=== PATIENT | male | born 1930 | race Caucasian/White ===

== ENCOUNTER 2017-08-16 22:32 | Emergency (ER) | payer MEDICARE ==
[~2017-08-16] VITALS: Ht 175.3 cm; Wt 95.3 kg
[~2017-08-16 22:32] MED LIST: AMLO10TA82 PO; ASP81TEC PO; CHOL200035 PO; CLPD75T PO; FURO20TA4 PO; HCT25T PO; HUM100VI15 SQ; HUM100VI4 SQ; IBUP200T48 PO; ISOS30TA3 PO; METO25TA PO; METO25TA2 PO; MTF500T PO; OMEG-11 PO; PED1TAB. PO; PIOG30TA27 PO; POTA10CA43 PO; PRAM0.5T9 PO; ROSU10TA12 PO; ROSU5TAB PO; TRZS2T PO; VLS80C PO
--- OUTSIDE RECORDS SUMMARY | 2017-08-16 22:39 | XMS REPORT | Continuity of Care Document ---
Author Author [facility] Organization [facility] Address Unknown Phone Unavailable Allergies Active Description Code Type Severity Reaction Onset Reported/Identified Relationship to Patient Clinical Status Yes No Known Drug Allergies [id number] Drug Allergy Unknown N/A 11/25/2011 Medications There is no data. Problems Date Dx Coded Attending Type Code Diagnosis Diagnosed By 11/27/2011 Ot 250.00 11/27/2011 Ot 327.23 11/27/2011 Ot 401.9 11/27/2011 Ot 411.1 11/27/2011 Ot 414.01 12/30/2014 KEN LANGFORD FACC, ALI FACP CCDS Ot 443.9 02/22/2015 KEN LANGFORD FACC, ALI FACP CCDS Ot 250.00 02/22/2015 KEN LANGFORD FACNoemy, ALI FACP CCDS Ot 272.4 02/22/2015 KEN LANGFORD FACNoemy, ALI FACP CCDS Ot 278.00 02/22/2015 KEN LANGFORD FACC, ALI FACP CCDS Ot 403.90 02/22/2015 KEN LANGFORD FACC, ALI FACP CCDS Ot 414.01 02/22/2015 KEN LANGFORD FACNoemy, ALI FACP CCDS Ot 414.4 02/22/2015 EKN LANGFORD FACC, ALI FACP CCDS Ot 440.21 02/22/2015 KEN LANGFORD FACC, ALI FACP CCDS Ot 585.3 02/22/2015 KEN LANGFORD FACC, ALI FACP CCDS Ot 786.09 02/22/2015 KEN MILLERC, ALI FACP CCDS Ot 786.50 02/22/2015 KEN LANGFORD FACC, ALI FACP CCDS Ot V45.81 02/22/2015 KEN LANGFORD FACC, ALI FACP CCDS Ot V58.67 02/22/2015 KEN MILLERC, ALI FACP CCDS Ot V58.69 02/22/2015 KEN LANGFORD FACC, ALI FACP CCDS Ot V85.33 03/29/2015 KHADAR PAYTON MD Ot 250.00 DIAB CASSI WO COMPL, TYPE II OR UNSPEC TY 03/29/2015 KHADAR PAYTON MD Ot 272.4 HYPERLIPIDEMIA NEC/NOS 03/29/2015 KHADAR PAYTON MD Ot 327.23 OBSTRUCTIVE SLEEP APNEA (ADULT) (PEDIATR 03/29/2015 KHADAR PAYTON MD Ot 403.90 HYPTNSV CHR KID DIS, UNSPEC, W CHR KD ST 03/29/2015 KHADAR PAYTON MD Ot 414.01 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 03/29/2015 KHADAR PAYTON MD Ot 440.21 ATHEROSCL [place] ARTER EXTREM W INTERMIT 03/29/2015 KHADAR PAYTON MD Ot 440.4 CHRONIC TOTAL OCCLUSION OF ARTERY OF THE 03/29/2015 KHADAR PAYTON MD Ot 585.9 CHRONIC KIDNEY DISEASE, UNSPECIFIED 03/29/2015 KHADAR PAYTON MD Ot 786.09 RESPIRATORY ABNORM NEC 03/29/2015 KHADAR PAYTON MD Ot 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 03/29/2015 KHADAR PAYTON MD Ot V58.67 LONG-TERM (CURRENT) USE OF INSULIN 03/29/2015 KHADAR PAYTON MD, Ot V58.69 OTH MED,LT,CURRENT USE 04/04/2015 Ot 250.00 04/04/2015 Ot 414.00 04/04/2015 Ot 250.00 04/04/2015 Ot 272.4 04/04/2015 Ot V45.81 04/04/2015 Ot 250.00 04/04/2015 Ot 272.4 04/04/2015 Ot 397.0 04/04/2015 Ot 416.8 04/04/2015 Ot 424.0 04/04/2015 Ot V45.81 04/04/2015 CELIA CASEY MD Ot 786.05 04/04/2015 KEN LANGFORD FACLOGAN Salguero FACP CCDS Ot 443.9 04/06/2015 KHADAR PAYTON MD Ot 250.00 04/06/2015 KHADAR PAYTON MD Ot 272.4 04/06/2015 KHADAR PAYTON MD Ot 389.9 04/06/2015 KHADAR PAYTON MD Ot 403.90 04/06/2015 KHADAR PAYTON MD Ot 414.00 04/06/2015 KHADAR PAYTON MD Ot 440.21 04/06/2015 KHADAR PAYTON MD Ot 585.3 04/06/2015 KHADAR PAYTON MD Ot V45.89 04/06/2015 KHADAR PAYTON MD Ot V58.69 Procedures There is no data. Results There is no data. Encounters ACCT No. Visit Date/Time Discharge Status Pt. Type Provider Facility Loc./Unit Complaint [id number] 04/05/2015 07:21:00 04/06/2015 12:50:00 DIS Outpatient KHADAR PAYTON MD [facility] [id number] 03/28/2015 06:54:00 03/29/2015 12:45:00 DIS Outpatient KHADAR PAYTNO MD [facility] CAD/PAD [id number] 02/22/2015 09:00:00 02/22/2015 20:25:00 DIS Outpatient KEN LANGFORD FACC, ALI FACP CCDS [facility] CATH [id number] 12/07/2014 08:15:00 12/07/2014 23:59:59 CLS Preadmit KEN LANGFORD FACC, ALI FACP CCDS [facility] CARD [id number] 12/02/2014 08:37:00 12/02/2014 23:59:59 CLS Outpatient KEN LANGFORD FACC, ALI FACP CCDS [facility] RAD [id number] 04/22/2013 12:27:00 04/22/2013 23:59:59 CLS Outpatient CELIA CASEY MD [facility] RT [id number] 08/16/2017 22:34:00 ACT Emergency YOLY DIAZ MD [facility] ER DIABETIC,BLEEDING UNDER CHIN/ CANT STOP THE BLEEDI [id number] 11/28/2012 08:15:00 Document Registration [id number] 11/24/2012 09:42:00 Document Registration [id number] 12/12/2011 10:00:00 Document Registration [id number] 11/25/2011 20:38:00 Document Registration
--- NOTE | 2017-08-16 22:57 | ED Integumentary General ---
General Chief Complaint: Skin/Wound Problems Stated Complaint: DIABETIC,BLEEDING UNDER CHIN/ CANT STOP THE BLEEDI Nursing Triage Note: PT STATES HE CUT HIMSELF ON THE CHIN WHILE SHAVING THIS AM AND IT HAS NOT STOPPED BLEEDING SINCE. Source: patient, spouse Exam Limitations: no limitations History of Present Illness Time seen by provider: 22:48 Initial Comments Patient presents to ER by a conveyance with a chief complaint that he takes his left neck while shaving with a safety razor this morning and his says he's been picking it ever since and it will not stop bleeding just a small ballotable of blood. He put a cotton ball and tape over it but he can't get it to stop bleeding. He is on Plavix and aspirin and is taking his medications. He also has a history of diabetes. He's had no chest pain, shortness of breath or weakness. No known history of anemia. Allergies and Home Medications Allergies Coded Allergies: No Known Drug Allergies (Unverified , 11/25/11) Home Medications Amlodipine Besylate 10 Mg Tablet, 10 MG PO DAILY, (Reported) Aspirin 81 Mg Tabec, 81 MG PO DAILY, (Reported) Cholecalciferol (Vitamin D3) 2,000 Unit Capsule, 2,000 UNIT PO 1200, (Reported) Clopidogrel Bisulfate 75 Mg Tab, 75 MG PO DAILY, (Reported) Furosemide 20 Mg Tablet, 20 MG PO DAILY, (Reported) Hum Insulin Nph/Reg Insulin Hm 10 Unit/0.1 Ml Soln, 40 UNIT SQ DAILY, (Reported) Ibuprofen 200 Mg Tablet, 200 MG PO Q6H PRN for PAIN, (Reported) Isosorbide Mononitrate 30 Mg Tab.sr.24h, 30 MG PO DAILY, (Reported) Metformin Hcl 500 Mg Tablet, 500 MG PO BID WITH MEALS, (Reported) Metoprolol Succinate 25 Mg Tab.sr.24h, 25 MG PO DAILY, (Reported) [place]-3S/Dha/Epa/Fish Oil 1 Each Capsule, 1,200 MG PO DAILY, (Reported) Ped Multivit #22/Vit D3/Vit K 1 Each Tab.chew, 1 TAB PO DAILY, (Reported) Pioglitazone Hcl 30 Mg Tablet, 30 MG PO DAILY, (Reported) Pramipexole Di-Hcl 0.5 Mg Tablet, 0.5 MG PO HS, (Reported) Rosuvastatin Calcium 10 Mg Tablet, 5 MG PO HS, (Reported) TAKES 1/2 (10MG) TABLET Terazosin Hcl 2 Mg Cap, 2 MG PO HS, (Reported) Constitutional: No chills, No fever, No malaise EENTM: see HPI, no symptoms reported Respiratory: No cough, No short of breath Cardiovascular: No chest pain, No syncope Gastrointestinal: No abdominal pain, No constipation, No diarrhea, No nausea Genitourinary: No discharge, No dysuria Skin: see HPI, other Past Opodhxl-Unshhv-Suvzsa Hx Patient Social History Alcohol Use: Denies Use Recreational Drug Use: No Smoking Status: Never a Smoker Recent Foreign Travel: No Contact w/Someone Who Travel: No Recent Infectious Disease Expo: No Recent Hopitalizations: Yes (SULEMA RUBIO) Physical Abuse: No Sexual Abuse: No Mistreated: No Fear: No Immunizations Up To Date Date of Pneumonia Vaccine: May 06, 2012 Date of Influenza Vaccine: Jun 08, 2011 Surgeries History of Surgeries: Yes (SHOULDER, CATARACTS, HEMORRIODS) Respiratory History of Respiratory Disorde: No Respiratory Disorders: Sleep Apnea Cardiovascular History of Cardiac Disorders: Yes Cardiac Disorders: Coronary Artery Disease, High Cholesterol, Hypertension Neurological History of Neurological Disord: No Reproductive System Hx Reproductive Disorders: No Gastrointestinal History of Gastrointestinal Di: No Musculoskeletal History of Musculoskeletal Dis: Yes Endocrine History of Endocrine Disorders: Yes Endocrine Disorders: Diabetes, Insulin dep Psychosocial History of Psychiatric Problem: No Suicide Risk Score: 0 Blood Transfusions History of Blood Disorders: No Physical Exam Vital Signs Vital Sign - Last 12Hours 08/16/17 22:41 Temp 97.7 Pulse 58 Resp 16 B/P (MAP) 175/100 (125) Capillary Refill : Less Than 3 Seconds General Appearance: WD/WN, no apparent distress HEENT: PERRL/EOMI, pharynx normal Neck: non-tender, full range of motion, supple, other (small 1-2 mm punctate abrasion consistent with a razor blade scrape on his left anterior neck that is producing a small amount of red blood.) Cardiovascular: normal peripheral pulses, regular rate, rhythm, no edema Respiratory: chest non-tender, lungs clear, no accessory muscle use Gastrointestinal: non tender, soft Neurologic/Psychiatric: alert, normal mood/affect, oriented x 3 Progress/Results/Core Measures Results/Orders Lab Results Laboratory Tests Test 08/16/17 22:40 Range/Units White Blood Count 7.7 4.3-11.0 10^3/uL Red Blood Count 3.68 L 4.35-5.85 10^6/uL Hemoglobin 11.4 L 13.3-17.7 G/DL Hematocrit 34 L 40-54 % Mean Corpuscular Volume 93 80-99 FL Mean Corpuscular Hemoglobin 31 25-34 PG Mean Corpuscular Hemoglobin Concent 33 32-36 G/DL Red Cell Distribution Width 13.5 10.0-14.5 % Platelet Count 190 130-400 10^3/uL Mean Platelet Volume 10.5 H 7.4-10.4 FL Neutrophils (%) (Auto) 53 42-75 % Lymphocytes (%) (Auto) 31 12-44 % Monocytes (%) (Auto) 12 0-12 % Eosinophils (%) (Auto) 4 0-10 % Basophils (%) (Auto) 0 0-10 % Neutrophils # (Auto) 4.1 1.8-7.8 X 10^3 Lymphocytes # (Auto) 2.4 1.0-4.0 X 10^3 Monocytes # (Auto) 0.9 0.0-1.0 X 10^3 Eosinophils # (Auto) 0.3 0.0-0.3 10^3/uL Basophils # (Auto) 0.0 0.0-0.1 10^3/uL Prothrombin Time 13.9 12.2-14.7 SEC INR Comment 1.1 0.8-1.4 My Orders Orders - EMILYYOLY Lali Cbc With Automated Diff (08/16/17 23:12) Protime With Inr (08/16/17 23:12) Saline Lock/Iv-Start (08/16/17 23:12) Vital Signs/I&O Vital Sign - Last 12Hours 08/16/17 22:41 Temp 97.7 Pulse 58 Resp 16 B/P (MAP) 175/100 (125) Blood Pressure Mean: 125 Progress Note #1: Time: 23:13 Progress Note Cautery by silver nitrate got the blood to stop flowing so we put a bandage back over and have him hold pressure on it while we are waiting for the blood work back. Progress Note #2: Time: 23:50 Progress Note Hemostasis is obtained. Blood is unremarkable from last lab draws. Departure Impression Impression: Primary Impression: Abrasion, neck w/o infection Disposition: 01 HOME, SELF-CARE Condition: Improved Departure-Patient Inst. Decision time for Depature: 23:50 Referrals: CELIA CASEY MD (PCP) Primary Care Physician Add. Discharge Instructions: If bleeding resumes but the dressing over the wound and applied direct pressure and stay in an upright seated position for 20 minutes without taking your finger off of the wound. If the wound begins to look infected should follow up with your primary care physician or return to the ER if he developed fevers, nausea or chest pain. All discharge instructions reviewed with patient and/or family. Voiced understanding. Copy Copies To 1: CELIA CASEY MD, TITUS J Aug 16, 2017 22:57
[2017-08-16 23:18] LABS: BASOPHILS % (AUTO) 0 % (0-10); EOSINOPHILS # (AUTO) 0.3 10^3/uL (0.0-0.3); EOSINOPHILS % (AUTO) 4 % (0-10); LYMPHOCYTES # (AUTO) 2.4 X 10^3 (1.0-4.0); LYMPHOCYTES % (AUTO) 31 % (12-44); MEAN CORPUSCULAR HEMOGLOBIN 31 PG (25-34); MEAN CORPUSCULAR HGB CONC 33 G/DL (32-36); MEAN CORPUSCULAR VOLUME 93 FL (80-99); MEAN PLATELET VOLUME 10.5 FL (7.4-10.4); MONOCYTES # (AUTO) 0.9 X 10^3 (0.0-1.0); MONOCYTES % (AUTO) 12 % (0-12); NEUTROPHILS # (AUTO) 4.1 X 10^3 (1.8-7.8); NEUTROPHILS % (AUTO) 53 % (42-75); PLATELET COUNT 190 10^3/uL (130-400); RED BLOOD COUNT 3.68 10^6/uL (4.35-5.85); RED CELL DISTRIBUTION WIDTH 13.5 % (10.0-14.5); WHITE BLOOD COUNT 7.7 10^3/uL (4.3-11.0)
[2017-08-16 23:33] LABS: INR 1.1 (0.8-1.4); PROTHROMBIN TIME PATIENT 13.9 SEC (12.2-14.7)
[2017-08-17 00:05] VITALS: BP 175/100
== END 2017-08-17 00:07 | disposition home or self-care (01) ==
LOC: EDUNIT# 22:32 → ER 22:34
DX: S10.91XA Abrasion of unspecified part of neck, initial encounter (principal); E11.9 Type 2 diabetes mellitus without complications; G47.30 Sleep apnea, unspecified; I25.10 Atherosclerotic heart disease of native coronary artery without angina pectoris; E78.00 Pure hypercholesterolemia, unspecified; I10 Essential (primary) hypertension; W26.8XXA Contact with other sharp object(s), not elsewhere classified, initial encounter; Z79.82 Long term (current) use of aspirin; Z79.4 Long term (current) use of insulin; Z79.02 Long term (current) use of antithrombotics/antiplatelets
CPT/HCPCS: 36415; 85025; 85610

== ENCOUNTER → 2018-03-04 | Outpatient (CLI) | payer MEDICARE, OTHER ==
[~2018-03-04] VITALS: Ht 175.3 cm; Wt 94.8 kg
[~2018-03-04] MED LIST changes: +CATHETER FLUSH 10 ML SYR IV PRN; +REGADENOSON 0.4 MG/5 ML SYR (LEXISCAN) IV ONE
[2018-03-04 08:35] VITALS: BP 196/81
[2018-03-04 08:40] VITALS: BP 161/59
--- NOTE | 2018-03-06 13:47 | STRESS TEST ---
DATE OF SERVICE: 03/04/2018 RESTING AND POST REGADENOSON TECHNETIUM-99M TETROFOSMIN SPECT CT IMAGING ORDERING PHYSICIAN: HALEIGH Carmona PRIMARY CARE PHYSICIAN: HALEIGH Moreno CLINICAL DIAGNOSES: Coronary artery disease, shortness of breath. Baseline images were carried out after injection of 10.48 mCi of technetium-99m tetrofosmin. This was followed by 0.4 mg of regadenoson and 30.2 mCi of technetium-99m tetrofosmin for stress imaging. The electrocardiogram showed sinus rhythm with left bundle branch block. There appeared to be sinus arrhythmia. The electrocardiogram did not change significantly with regadenoson infusion. The patient tolerated the procedure well. Review of images at rest and following stress does not indicate any distinct perfusion defects consistent with significant myocardial ischemia or infarction. Gated images show normal global left ventricular systolic function with normal regional wall motion. Left ventricular ejection fraction is calculated to be 49%. Left ventricular end diastolic volume is 93 mL. TID is absent (0.94). CONCLUSIONS: 1. No evidence of significant myocardial ischemia or infarction on this study. 2. Global left ventricular systolic function is at the lower limit of normal with an ejection fraction approximately 49%. 3. No distinct regional wall motion abnormalities seen on this study. Job ID: [id number] DocumentID: [id number] Dictated Date: 03/06/2018 10:03:09 Traffic Technician Date: 03/06/2018 13:46:48 Dictated By: LOGAN ROGERS MD, MA, FACP, FACC,
== END ==
LOC: CARD 07:19
PROVIDERS: ATTEND Nurse Practitioner Family
DX: I25.10 Atherosclerotic heart disease of native coronary artery without angina pectoris (principal); R06.09 Other forms of dyspnea
CPT/HCPCS: 78452; 93017